=== PATIENT | male | born 1980 | race American Indian/Alaskan Native ===

== ENCOUNTER 2018-09-21 10:27 | Inpatient (IN) | payer BC ==
[2018-09-21 10:48] VITALS: BMI 39.0
[2018-09-21] MEDS ORDERED: Sodium Chloride 0.9% 1,000 ML IV ONE (11:55)
[2018-09-21] MEDS ORDERED: Iohexol 240 (50 ml) PO STA (12:23)
--- NOTE | 2018-09-21 12:24 | C.PDOC ---
History Of Present Illness 37 y/o male with PMHx of cardiac ablation and s/p defibrillator placement, presents to the ED complaining of multiple episodes of diarrhea since last night. Associated with 1 episode of vomiting yesterday, none today. Reports he had another diarrheal episode this morning, in which only blood came out. He denies any fever, chills, dizziness, lightheadedness, abdominal pain, chest pain, or SOB. Patient reports compliance with his Lisinopril, admits he had not been taking his daily baby aspirin but resumed taking it this week. No recent travel. No recent antibiotics. Patient also complains of right-sided back pain, ongoing for some time now. Last seen by his covering machine tender on 09/10. Time Seen by Provider: 09/21/18 10:57 Chief Complaint (Nursing): GI Problem History Per: Patient History/Exam Limitations: no limitations Onset/Duration Of Symptoms: Intermittent Episodes Current Symptoms Are (Timing): Still Present Associated Symptoms: Diarrhea, Back Pain Past Medical History Reviewed: Historical Data, Nursing Documentation, Vital Signs Vital Signs: Last Vital Signs Temp 98.2 F 09/21/18 10:48 Pulse 74 09/21/18 10:48 Resp 18 09/21/18 10:48 BP 145/89 09/21/18 10:48 Pulse Ox 99 09/21/18 10:48 Surgical History: Pacemaker Family History: States: No Known Family Hx - Social History Hx Alcohol Use: No Hx Substance Use: No - Immunization History Hx Tetanus Toxoid Vaccination: No Hx Influenza Vaccination: No Hx Pneumococcal Vaccination: No Review Of Systems Except As Marked, All Systems Reviewed And Found Negative. Constitutional: Negative for: Fever, Chills Eyes: Negative for: Vision Change Cardiovascular: Negative for: Chest Pain, Palpitations Respiratory: Negative for: Shortness of Breath Gastrointestinal: Positive for: Diarrhea (+ watery bloody diarrhea), Other (Bloating). Negative for: Vomiting, Abdominal Pain Neurological: Negative for: Headache, Dizziness Physical Exam - Physical Exam Appears: Non-toxic, Other (Appears uncomfortable) Skin: Warm, Dry Head: Atraumatic, Normacephalic Eye(s): bilateral: Normal Inspection, PERRL, EOMI Oral Mucosa: Moist Neck: Normal ROM Chest: Symmetrical Gastrointestinal/Abdominal: Soft, Tenderness (mild diffuse tenderness), No Distention, No Guarding Rectal: No Hemorrhoids, No Mass, No Tenderness, Other (Bright red blood) Back: Normal Inspection Extremity: Bilateral: Atraumatic, Normal ROM Pulses: Left Dorsalis Pedis: Normal, Right Dorsalis Pedis: Normal Neurological/Psych: Oriented x3, Normal Speech ED Course And Treatment - Laboratory Results Result Diagrams: 09/21/18 12:14 09/21/18 12:14 O2 Sat by Pulse Oximetry: 99 (RA) Pulse Ox Interpretation: Normal Medical Decision Making Medical Decision Making: Differential diagnosis includes but is not limited to: Shigella, ulcerative colitis, Crohns disease, diarrhea secondary to enteritis Initial Plan: --CMP --Lipase --CBC --Stool culture --Occult blood, stool --Ova & parasite --1L IV fluids --Zofran 4 mg IVP --Pepcid 20 mg IVP --CT Abdomen/Pelvis with PO & IV contrast Fecal occult stool performed and is (+) for blood. Disposition - Disposition Disposition Time: 13:23 Condition: STABLE Forms: [employer] (Colombian) - Clinical Impression Clinical Impression: GI bleeding, Abdominal pain - PA / STEERSMAN / Resident Statement MD/DO has reviewed & agrees with the documentation as recorded. - Scribe Statement The provider has reviewed the documentation as recorded by the Aquilesibkaren Cook All medical record entries made by the Aquilesibkaren were at my direction and personally dictated by me. I have reviewed the chart and agree that the record accurately reflects my personal performance of the history, physical exam, medical decision making, and the department course for this patient. I have also personally directed, reviewed, and agree with the discharge instructions and disposition. Physician Patient Turnover Patient Signed Over To: Angi Montilla Handoff Comments: Pending CT scan and re-evaluation
[2018-09-21 12:27] LABS: BASO % 0.5 % (0.0-2.0); EOS # 0.1 K/uL (0.0-0.7); EOS % 0.9 % (0.0-4.0); HEMOGLOBIN 11.2 g/dL (12.0-18.0); LYMPH # 1.9 K/uL (1.0-4.3); LYMPH % 22.1 % (20.0-40.0); MEAN CELL VOLUME 73.4 fL (80.0-94.0); MEAN CORPUSCULAR HGB CONC 31.3 g/dL (33.0-37.0); MEAN PLATELET VOLUME 8.3 fL (7.2-11.7); MONO # 0.6 K/uL (0.0-0.8); MONO % 6.4 % (0.0-10.0); NEUT % 70.1 % (50.0-75.0); RBC 4.88 Mil/uL (4.40-5.90); RED CELL DISTRIBUTION WIDTH 15.3 % (11.5-14.5); WHITE BLOOD COUNT 8.6 K/uL (4.8-10.8)
[2018-09-21 12:36] LABS: ALB/GLOB RATIO 1.1 (1.0-2.1); ALBUMIN 4.5 g/dL (3.5-5.0); ALT/SGPT 24 U/L (21-72); AST/SGOT 27 U/L (17-59); BLOOD UREA NITROGEN 20 mg/dL (9-20); CALCIUM 9.2 mg/dl (8.6-10.4); GFR NON-AFRICAN AMERICAN > 60; LIPASE 32 U/L (23-300)
[2018-09-21] MEDS ORDERED: Iohexol 240 (50 ml) ONE (13:42)
[2018-09-21] MEDS ORDERED: Iodixanol 320 MG/ML 100 ML BOTTLE IV ONE (14:28)
--- NOTE | 2018-09-21 16:29 | CT ---
CT abdomen and pelvis HISTORY: Abdominal pain. COMPARISON: None available. Technique: Multiple contiguous axial images were performed through the abdomen and pelvis with the use of intravenous contrast. Subsequently, sagittal and coronal reformatted images were obtained. This CT exam was performed using one or more of the following dose reduction techniques: Automated exposure control, adjustment of the mA and/or kV according to patient size, and/or use of iterative reconstruction technique. Findings: Lung bases are grossly preserved. Pacer and/or AICD leads in place. Liver and gallbladder are preserved. Spleen is preserved. Splenule. Adrenal glands are preserved. Mild fatty atrophy of the pancreas. Upper abdominal bowel is preserved. Right kidney: No calculi or hydronephrosis. Left Kidney: No calculi or hydronephrosis. Underdistended urinary bladder. Prostate and seminal vesicles are preserved. Thickening of the transverse and descending colon suggestive for a colitis possibly related to an acute infectious and or inflammatory process. Clinical correlation. Fecal retention in the right hemicolon. Appendix not well visualized. Few shotty para-aortic and inguinal lymph nodes. Few shotty mesenteric lymph nodes. Degenerative changes in the spine. Impression: Thickened left hemicolon suggestive for a colitis, possibly acute infectious and or inflammatory in etiology. Clinical correlation. Additional findings as above.
[2018-09-21] MEDS ORDERED: metroNIDAZOLE IV 500 mg/100 ml 500 MG/100 ML BAG IV SCH (16:45)
[2018-09-21] MEDS ORDERED: metroNIDAZOLE IV 500 mg/100 ml 500 MG/100 ML BAG ONE (16:48)
[2018-09-21] MEDS ORDERED: metroNIDAZOLE IV 500 mg/100 ml 500 MG/100 ML BAG IV STA (16:56)
[2018-09-21 17:02] LABS: BASO # 0.1 K/uL (0.0-0.2); BASO % 0.8 % (0.0-2.0); EOS # 0.1 K/uL (0.0-0.7); EOS % 1.3 % (0.0-4.0); LYMPH # 2.8 K/uL (1.0-4.3); LYMPH % 30.7 % (20.0-40.0); MEAN CELL VOLUME 73.3 fL (80.0-94.0); MEAN CORPUSCULAR HEMOGLOBIN 22.6 pg (27.0-31.0); MEAN CORPUSCULAR HGB CONC 30.9 g/dL (33.0-37.0); MEAN PLATELET VOLUME 7.6 fL (7.2-11.7); MONO # 0.5 K/uL (0.0-0.8); NEUT # 5.7 K/uL (1.8-7.0); NEUT % 62.2 % (50.0-75.0); RBC 4.84 Mil/uL (4.40-5.90); WHITE BLOOD COUNT 9.1 K/uL (4.8-10.8)
[2018-09-21 17:10] LABS: INR 1.1; PROTHROMBIN TIME 12.3 SECONDS (9.7-12.2)
[2018-09-21] MEDS: metroNIDAZOLE IV 500 mg/100 ml 500 MG/100 ML BAG IVPB SCH (21:40)
[2018-09-22] MEDS: metroNIDAZOLE IV 500 mg/100 ml 500 MG/100 ML BAG IVPB SCH ×3 (05:14→21:01)
[2018-09-22 08:08] LABS: BASO # 0.1 K/uL (0.0-0.2); BASO % 0.8 % (0.0-2.0); EOS # 0.1 K/uL (0.0-0.7); EOS % 1.8 % (0.0-4.0); LYMPH # 2.6 K/uL (1.0-4.3); MEAN CELL VOLUME 73.7 fL (80.0-94.0); MEAN CORPUSCULAR HEMOGLOBIN 23.5 pg (27.0-31.0); MEAN CORPUSCULAR HGB CONC 31.9 g/dL (33.0-37.0); MEAN PLATELET VOLUME 8.2 fL (7.2-11.7); MONO # 0.5 K/uL (0.0-0.8); MONO % 7.2 % (0.0-10.0); NEUT % 54.2 % (50.0-75.0); NRBC % 0.1 % (0.0-2.0); RBC 4.7 Mil/uL (4.40-5.90); RED CELL DISTRIBUTION WIDTH 15.2 % (11.5-14.5); WHITE BLOOD COUNT 7.3 K/uL (4.8-10.8)
[2018-09-22 08:32] LABS: ALBUMIN 3.9 g/dL (3.5-5.0); ALT/SGPT 29 U/L (21-72); AST/SGOT 27 U/L (17-59); BLOOD UREA NITROGEN 10 mg/dL (9-20); CALCIUM 8.9 mg/dl (8.6-10.4); GFR NON-AFRICAN AMERICAN > 60
[2018-09-22] MEDS ORDERED: Peg-Electrolyte Oral Soln 4L (Golytely) PO ONE (10:00)
[2018-09-22 11:35] LABS: INR 1.1; PROTHROMBIN TIME 12.5 SECONDS (9.7-12.2)
--- NOTE | 2018-09-22 14:02 | PN ---
DATE: 09/22/2018 LOCATION: 361, bed B. SUBJECTIVE: This is a 37-year-old male seen initially for GI consultation as requested by the admitting MD on 09/21/2018, reexamined again today with intermittent period of semi-watery bowel movement with trace of fresh blood with slight crampy abdominal pain less than before. No reported hematemesis, but nausea with mild dyspepsia. No reported chest pain, palpitation or significant chills or fever. Most recent lab results showed subsequent drop of hemoglobin to 11, hematocrit 34.9 with low indices highly suggestive of hypochromic microcytic anemia with recently reported PT of 12.3, PTT of 42 with stool for occult blood positive. A most recently done abdominal and pelvic CAT scan, official report is seen indicative of possible acute colitis or infectious process. The possibility of inflammatory bowel disease by radiology study results was raised. PHYSICAL EXAMINATION: GENERAL: A 37-year-old male. VITAL SIGNS: Afebrile with pulse of 64, respiratory rate of 18 to 20 with blood pressure of 124/74. HEENT: Showed pale, dry oral mucous membrane. Nonicteric sclerae. LUNGS: Clear, breathing sounds are present bilaterally. HEART: Positive S1 and S2. ABDOMEN: Soft with mild generalized tenderness and mild distention including midepigastric and midabdominal line. No mass or organomegaly. No rebound tenderness or guarding. Bowel sounds are present. EXTREMITIES: Without significant edema, clubbing or cyanosis. IMPRESSION: 1. Diarrhea, that could be infectious versus secondary to inflammatory bowel disease with abnormal computerized axial tomography scan of the abdomen and the pelvis. 2. Episodes of vomiting with nausea and dyspepsia. The possibility of upper gastrointestinal blood loss with gastric versus duodenal ulcer to be ruled on or out. 3. Reported history of cardiac ablation with status post defibrillator placement. 4. Anemia, most likely secondary to above. 5. Hyperglycemia of unclear etiology, that could be an early episode of diabetes mellitus. SUGGESTIONS: 1. Agree with your plan. 2. Endoscopic evaluation of the upper and the lower endoscopy after adequate preparation. 3. May add Carafate p.o. with Reglan IV. 4. Further recommendation to follow post upper and lower endoscopy. Luz Marina Castellanos MD [facility] # [id number]
[2018-09-22] MEDS ORDERED: Bisacodyl 5mg EC Tab PO ONE (17:00)
--- NOTE | 2018-09-22 18:08 | CP.PCM.CON ---
History of Present Illness - History of Present Illness History of Present Illness: 37 yo male adm with severe colitis Hx AICD on IV rx await cultures 37 y/o male with PMHx of cardiac ablation and s/p defibrillator placement, presents to the ED complaining of multiple episodes of diarrhea since last night. Associated with 1 episode of vomiting yesterday, Reports he had another diarrheal episode this morning, in which only blood came out. He denies any fever, chills, dizziness, lightheadedness, abdominal pain, chest pain, or SOB. Patient reports compliance with his Lisinopril, admits he had not been taking his daily baby aspirin but resumed taking it this week. No recent travel. No recent antibiotics. Patient also complains of right-sided back pain, Surgical History: Pacemaker Family History: States: No Known Family Hx Review of Systems - Review of Systems All systems: reviewed and no additional remarkable complaints except Past Patient History - Past Medical History & Family History Past Medical History?: Yes - Past Social History Smoking Status: Never Smoked - CARDIAC Hx Hypertension: Yes Hx Pacemaker: Yes Other/Comment: had an ablation and insertion of pacemaker two yars ago by c ardiologist - PULMONARY Hx Respiratory Disorders: No - NEUROLOGICAL Hx Neurological Disorder: No - HEENT Hx HEENT Problems: No - RENAL Hx Chronic Kidney Disease: No - ENDOCRINE/METABOLIC Hx Endocrine Disorders: No - HEMATOLOGICAL/ONCOLOGICAL Hx Blood Disorders: No - INTEGUMENTARY Hx Dermatological Problems: No - MUSCULOSKELETAL/RHEUMATOLOGICAL Hx Musculoskeletal Disorders: No Hx Falls: No - GASTROINTESTINAL Hx Gastrointestinal Disorders: No - GENITOURINARY/GYNECOLOGICAL Hx Genitourinary Disorders: No - PSYCHIATRIC Hx Psychophysiologic Disorder: No Hx Substance Use: No - SURGICAL HISTORY Hx Surgeries: Yes Other/Comment: ablation and pacemaker insertion - ANESTHESIA Hx Anesthesia: Yes Hx Anesthesia Reactions: No Hx Malignant Hyperthermia: No Has any member of the family had a problem w/ anesthesia?: No Meds Home Medications: Home Medication List Medication Instructions Recorded Confirmed Type Ciprofloxacin HCl [Cipro] 500 mg PO BID #14 tab 09/21/18 Rx Metronidazole [Flagyl] 500 mg PO BID #14 tab 09/21/18 Rx Allergies/Adverse Reactions: Allergies Allergy/AdvReac Type Severity Reaction Status Date / Time Penicillins Allergy Verified 09/21/18 10:46 - Medications Medications: Current Medications Carvedilol (Coreg) 25 mg PO BID NELY Last Admin: 09/22/18 17:52 Dose: 25 mg Metronidazole (Flagyl) 500 mg in 100 mls @ 100 mls/hr IVPB Q8H [facility]; Protocol Last Admin: 09/22/18 13:46 Dose: 100 mls/hr Influenza Virus Vaccine (Fluzone Quad [id number]) 60 mcg IM .ONCE ONE Stop: 09/23/18 10:01 Lisinopril (Zestril) 10 mg PO DAILY [facility] Last Admin: 09/22/18 09:33 Dose: 10 mg Metoclopramide HCl (Reglan) 5 mg IVP Q6H [facility] Last Admin: 09/22/18 13:45 Dose: 5 mg Pantoprazole Sodium (Protonix Inj) 40 mg IVP DAILY [facility] Last Admin: 09/22/18 09:33 Dose: 40 mg Pneumococcal Polyvalent Vaccine (Pneumovax 23 Vaccine) 0.5 ml IM .ONCE ONE Stop: 09/23/18 10:01 Physical Exam - Constitutional Appears: Non-toxic, Chronically Ill - Head Exam Head Exam: NORMOCEPHALIC - Eye Exam Eye Exam: PERRL Pupil Exam: NORMAL ACCOMODATION - ENT Exam ENT Exam: Mucous Membranes Dry - Neck Exam Neck exam: Positive for: Normal Inspection - Respiratory Exam Respiratory Exam: Decreased Breath Sounds - Cardiovascular Exam Cardiovascular Exam: REGULAR RHYTHM - GI/Abdominal Exam GI & Abdominal Exam: Diminished Bowel Sounds, Distended, Guarding - Rectal Exam Rectal Exam: Deferred - Exam Exam: NORMAL INSPECTION - Extremities Exam Extremities exam: Positive for: pedal pulses present - Back Exam Back exam: FULL ROM - Neurological Exam Neurological exam: Alert, CN II-XII Intact, Oriented x3 - Psychiatric Exam Psychiatric exam: Normal Mood - Skin Skin Exam: Dry Results - Vital Signs Recent Vital Signs: Last Vital Signs Temp 97.6 F 09/22/18 17:02 Pulse 60 09/22/18 17:02 Resp 20 09/22/18 17:02 BP 125/83 09/22/18 17:52 Pulse Ox 97 09/22/18 17:02 - Labs Result Diagrams: 09/22/18 08:04 09/22/18 08:04 Labs: Laboratory Results - last 24 hr 09/21/18 09/21/18 09/22/18 18:26 19:13 08:04 WBC 7.3 RBC 4.70 Hgb 11.0 L Hct 34.6 L MCV 73.7 L MCH 23.5 L MCHC 31.9 L RDW 15.2 H Plt Count 252 MPV 8.2 Neut % (Auto) 54.2 Lymph % (Auto) 36.0 [place] % (Auto) 7.2 Eos % (Auto) 1.8 Baso % (Auto) 0.8 Neut # (Auto) 4.0 Lymph # (Auto) 2.6 [place] # (Auto) 0.5 Eos # (Auto) 0.1 Baso # (Auto) 0.1 PT INR APTT Sodium Potassium Chloride Carbon Dioxide Anion Gap BUN Creatinine Est GFR ( Amer) Est GFR (Non-Af Amer) Random Glucose Calcium Total Bilirubin AST ALT Alkaline Phosphatase Total Protein Albumin Globulin Albumin/Globulin Ratio Carcinoembryonic Ag Prostate Specific Ag Stool Occult Blood Positive H Blood Type O POSITIVE Antibody Screen Negative 09/22/18 09/22/18 09/22/18 08:04 11:09 11:09 WBC RBC Hgb Hct MCV MCH MCHC RDW Plt Count MPV Neut % (Auto) Lymph % (Auto) [place] % (Auto) Eos % (Auto) Baso % (Auto) Neut # (Auto) Lymph # (Auto) [place] # (Auto) Eos # (Auto) Baso # (Auto) PT 12.5 H INR 1.1 APTT 42 H Sodium 140 Potassium 4.0 Chloride 102 Carbon Dioxide 29 Anion Gap 12 BUN 10 Creatinine 1.1 Est GFR ( Amer) > 60 Est GFR (Non-Af Amer) > 60 Random Glucose 106 Calcium 8.9 Total Bilirubin 0.8 AST 27 ALT 29 Alkaline Phosphatase 74 Total Protein 7.6 Albumin 3.9 Globulin 3.7 Albumin/Globulin Ratio 1.0 Carcinoembryonic Ag 3.4 H Prostate Specific Ag 0.623 Stool Occult Blood Blood Type Antibody Screen Assessment & Plan (1) Colitis Status: Acute (2) Abdominal pain Status: Acute (3) GI bleeding Status: Acute (4) Diarrhea Status: Acute - Assessment and Plan (Free Text) Assessment: acute onset bloody diarrhea- with CT findings suggestivr of colitis r/o enteroinvasive E coli r/o inflammatory bowel disease start empiric IV antibiotics
[2018-09-22] MEDS ORDERED: Aztreonam 1 GM in Sodium Chloride 0.9% 100 ML IVPB SCH (18:15)
[2018-09-22] MEDS: Aztreonam 1 GM in Sodium Chloride 0.9% 100 ML IVPB SCH (21:59)
[2018-09-23] MEDS: Aztreonam 1 GM in Sodium Chloride 0.9% 100 ML IVPB SCH ×3 (05:20→22:06)
[2018-09-23] MEDS: metroNIDAZOLE IV 500 mg/100 ml 500 MG/100 ML BAG IVPB SCH ×3 (06:22→22:04)
[2018-09-23 08:54] LABS: HEPATITIS B SURFACE AG Negative (NEGATIVE)
[2018-09-23 09:00] LABS: HEPATITIS A IGM NEGATIVE (NEGATIVE); HEPATITIS B CORE AB NEGATIVE (NEGATIVE)
[2018-09-23 09:11] LABS: HEPATITIS C ANTIBODY NEGATIVE (NEGATIVE)
--- NOTE | 2018-09-23 09:48 | RAD ---
Date of service: 09/23/2018 HISTORY: preop COMPARISON: No prior. FINDINGS: LUNGS: No active pulmonary disease. PLEURA: No significant pleural effusion identified, no pneumothorax apparent. CARDIOVASCULAR: No aortic atherosclerotic calcification present. Is mildly enlarged. In situ pacemaker/defibrillator. OSSEOUS STRUCTURES: No significant abnormalities. VISUALIZED UPPER ABDOMEN: Normal. OTHER FINDINGS: None. IMPRESSION: No active disease.
[2018-09-23] MEDS ORDERED: Influenza Vaccine 60 MCG/0.5 ML SYR (3 yr & up) IM ONE (10:00)
[2018-09-23] MEDS ORDERED: Pneumococcal 23-Valent Vaccine IM ONE (10:00)
--- NOTE | 2018-09-23 10:06 | CP.PCM.PN ---
Subjective - Date & Time of Evaluation Date of Evaluation: 09/23/18 Time of Evaluation: 07:00 - Subjective Subjective: Resident Progress Note for Dr. 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 Patient describes his diarrhea was bright red in color but it did not cover the whole toilet bowl. He had about 5 episodes at home and one more episode in the ED. He also report had one episode of vomiting. Patient was recently recently on baby aspirin per his chemistry teacher. He denies recent changes in diet or sick contacts. He does not have family history of colon cancer. Patient was told about his WPW diagnosis when he was 23 years old after having episodes of shortness of breath and palpitations. Patient underwent cardiac ablation soon after. Patient experienced an episode of syncope at 35 years old after using the toilet. Per patient, he then underwent "several heart testings" and was found he only had 30% EF and was recommended to have a pacemaker. Currently patient is resting in bed comfortably. He denies having fever, chills, shortness of breath, chest pain, nausea, vomiting, or urinary symptoms. 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 Lanza PMHx: WPW s/p cardiac ablation 2003 PSHx: pacemaker 2016 Allergy: penicillins Social Hx: Denies tobacco, alcohol, or drug use. 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 [employer] Family Hx: father CAD s/p 1 stent, mother ?A fib currently on blood thinner Medications: Aspirin 81mg, Carvedilol 25mg BID, Lisinopril 10mg Objective - Vital Signs/Intake and Output Vital Signs (last 24 hours): Temp Pulse Resp BP Pulse Ox 98.5 F 58 L 20 134/75 100 09/23/18 00:00 09/23/18 00:00 09/23/18 00:00 09/23/18 09:17 09/23/18 00:00 Intake and Output: 09/23/18 09/23/18 06:59 18:59 Intake Total 220 Balance 220 - Medications Medications: Current Medications Carvedilol (Coreg) 25 mg PO BID NELY Last Admin: 09/23/18 09:17 Dose: 25 mg Metronidazole (Flagyl) 500 mg in 100 mls @ 100 mls/hr IVPB Q8H [facility]; Protocol Last Admin: 09/23/18 06:22 Dose: 100 mls/hr Aztreonam 1 gm/ Sodium (Chloride) 100 mls @ 100 mls/hr IVPB Q8H [facility]; Protocol Last Admin: 09/23/18 05:20 Dose: 100 mls/hr Lisinopril (Zestril) 10 mg PO DAILY [facility] Last Admin: 09/23/18 09:18 Dose: 10 mg Metoclopramide HCl (Reglan) 5 mg IVP Q6H [facility] Last Admin: 09/23/18 09:10 Dose: 5 mg Pantoprazole Sodium (Protonix Inj) 40 mg IVP DAILY [facility] Last Admin: 09/23/18 09:16 Dose: 40 mg - Labs Labs: 09/22/18 08:04 09/22/18 08:04 PT 12.5 SECONDS (9.7-12.2) H 09/22/18 11:09 INR 1.1 09/22/18 11:09 APTT 42 SECONDS (21-34) H 09/22/18 11:09 - Additional Findings Additional findings: - Constitutional Appears: Well, Non-toxic - Head Exam Head Exam: NORMOCEPHALIC - Eye Exam Eye Exam: PERRL Pupil Exam: NORMAL ACCOMODATION - ENT Exam ENT Exam: Mucous Membranes Dry - Neck Exam Neck exam: Positive for: Normal Inspection - Respiratory Exam Respiratory Exam: Decreased Breath Sounds - Cardiovascular Exam Cardiovascular Exam: REGULAR RHYTHM - GI/Abdominal Exam GI & Abdominal Exam: Diminished Bowel Sounds, Distended, Guarding - Rectal Exam Rectal Exam: Deferred - Exam Exam: NORMAL INSPECTION - Extremities Exam Extremities exam: Positive for: pedal pulses present - Back Exam Back exam: FULL ROM - Neurological Exam Neurological exam: Alert, CN II-XII Intact, Oriented x3 - Psychiatric Exam Psychiatric exam: Normal Mood - Skin Skin Exam: Dry Assessment and Plan - Assessment and Plan (Free Text) Assessment: Colitis -CT Abd shows thickened left hemicolon suggestive for a colitis, possibly acute infectious and or inflammatory in etiology. -No fever, no leukocytosis -No further episodes of bloody diarrhea since admission -Follow up fecal calprotectin, cultures, serology -Infectious disease consulted, Dr. Benoit help appreciated -Azactam 1gm Q8hr and Flagyl 500mg Q8hr -GI consulted, Dr. Raymond help appreciated -Follow up endoscopy results Hypertension -Lisinopril 10mg -Carvedilol 25mg BID Prophylactic measures -Protonix 40mg IV -SCD -Reglan 5mg Q6h Case discussed with attending Dr. Smyth
[2018-09-23] MEDS ORDERED: PROCAINAMIDE 1000 MG/2 ML IV STA (10:41)
[2018-09-23] MEDS ORDERED: Lidocaine 4% (Laryng-O-Jet) Kit MM ONE (11:01)
[2018-09-23] MEDS ORDERED: Lactated Ringer's 500 ML IV ONE ×2 (11:04)
[2018-09-23] MEDS ORDERED: Midazolam 2 MG/2 ML VIAL ONE ×2 (11:05→11:15)
[2018-09-23] MEDS ORDERED: Etomidate 20 mg/10ml Inj IV ONE (11:06)
[2018-09-23] MEDS ORDERED: metroNIDAZOLE IV 500 mg/100 ml 500 MG/100 ML BAG IVPB SCH (14:00)
[2018-09-23 15:58] VITALS: RESP 20
--- NOTE | 2018-09-23 21:10 | CON ---
DATE: 09/21/2018 CHIEF COMPLAINT: I was called for a GI consultation by the admitting medical team. The patient is seen and fully examined on 09/21/2018 as requested by the admitting medical staff. The entire chart is reviewed including but not limited to the most recent lab and radiology study results, current and the previous medication list, current and the previous medical events, allergy to medication list as well as all the available current and the previous medical records. Case discussed with the staff at length. HISTORY OF PRESENT ILLNESS: This is a 37-year-old male, was admitted to the hospital through the emergency room with a main complaint of recurrent episodes of diarrhea within the last several hours prior to his admission with one episode of nausea and vomiting non-bloody, then subsequent episodes of rectal bleeding, but no actual chest pain, palpitation or any significant shortness of breath, chills or fever. PAST MEDICAL HISTORY: Including mainly but not limited to cardiac arrhythmia status post ablation and pacemaker insertion, peptic ulcer disease, chronic lower back pain syndrome. SOCIAL HISTORY: Denied any history of alcohol intake or cigarette smoking recently. FAMILY HISTORY: Unknown. MEDICATIONS: Current medication plus admission medication lists were reviewed. ALLERGIES TO MEDICATIONS: Unclear. LABORATORY DATA: Initial blood workup post admission showed low hemoglobin of 11.2 but normal hematocrit, white blood cells and platelet count. Blood glucose level was elevated to 126. After being admitted to the hospital, initial CAT scan of the abdomen and pelvis was indicative of possible colitis with possible acute infectious or/and inflammatory process. Entire report of the CAT scan was reviewed. PHYSICAL EXAMINATION: GENERAL: Normal 37-year-old male appears to be awake, alert, oriented, afebrile with a pulse of 76, respiratory rate 18-20, blood pressure 140/86. HEENT: Showed pale dry oral mucoid membrane mildly, nonicteric sclerae. LYMPH NODES: No lymphadenitis or lymphadenopathy. LUNGS: Few scattered crepitation. Decreased air entry at bases. HEART: Positive S1 and S2. ABDOMEN: Soft with generalized tenderness, mild distention. Bowel sounds are hyperactive. No mass or organomegaly. No rebound tenderness or guarding. RECTAL EXAMINATION: Guaiac-positive stool with mucoid semi-watery fecal material with trace of old and fresh blood. EXTREMITIES: Without significant clubbing, cyanosis, or edema. NEUROLOGIC: No reported new neurological deficits, sensory, or motor. No focal deficits reported. IMPRESSION: 1. Gastrointestinal bleeding, upper versus lower. 2. Re-exacerbation of peptic ulcer disease, to rule out gastric versus duodenal ulcer. 3. Abnormal CAT scan of the abdomen and pelvis with evidence of acute colitis associated with rectal bleeding. The possibility of infectious diarrhea versus inflammatory bowel disease was raised. 4. Diarrhea secondary to above. 5. Cardiac arrhythmias with status post pacemaker insertion. SUGGESTIONS: 1. Agree with your plan. 2. Cancer markers. 3. Proton pump inhibitors. 4. Currently p.o. 5. Endoscopic evaluation of the GI tract after adequate preparation. 6. Complete stool workup. 7 Further recommendation to follow post upper and lower endoscopy. Thank you for letting me participate in your patient's case management. Luz Marina Castellanos MD [email or web address]
[2018-09-24 00:09] VITALS: PULSE 60; TEMP 98.2; O2SAT 99
[2018-09-24] MEDS: Aztreonam 1 GM in Sodium Chloride 0.9% 100 ML IVPB SCH ×2 (04:38→13:31)
[2018-09-24] MEDS: metroNIDAZOLE IV 500 mg/100 ml 500 MG/100 ML BAG IVPB SCH (06:42)
--- NOTE | 2018-09-24 07:49 | CP.PCM.PN ---
Subjective - Date & Time of Evaluation Date of Evaluation: 09/24/18 Time of Evaluation: 08:00 - Subjective Subjective: Medicine Progress Note for Dr. Smyth: Patient was seen and examined at bedside in the AM. Patient states he is feeling well and denies abdominal pain. Patient denies chest pain, shortness of breath, nausea, vomiting, diarrhea, constipation, fever, chills, dysuria or hematuria. Objective - Vital Signs/Intake and Output Vital Signs (last 24 hours): Temp Pulse Resp BP Pulse Ox 98.2 F 60 20 135/76 99 09/24/18 00:06 09/24/18 00:06 09/24/18 00:06 09/24/18 00:06 09/24/18 00:06 Intake and Output: 09/24/18 09/24/18 06:59 18:59 Intake Total 300 Balance 300 - Medications Medications: Current Medications Carvedilol (Coreg) 25 mg PO BID [facility] Last Admin: 09/23/18 17:55 Dose: 25 mg Hydrocortisone Sodium Succinate (Solu-Cortef) 20 mg IV Q8 [facility] Last Admin: 09/23/18 22:03 Dose: 20 mg Metronidazole (Flagyl) 500 mg in 100 mls @ 100 mls/hr IVPB Q8H [facility]; Protocol Last Admin: 09/24/18 06:42 Dose: 100 mls/hr Aztreonam 1 gm/ Sodium (Chloride) 100 mls @ 100 mls/hr IVPB Q8H [facility]; Protocol Last Admin: 09/24/18 04:38 Dose: 100 mls/hr Lisinopril (Zestril) 10 mg PO DAILY [facility] Last Admin: 09/23/18 09:18 Dose: 10 mg Metoclopramide HCl (Reglan) 5 mg IVP Q6H [facility] Last Admin: 09/24/18 02:50 Dose: Not Given Pantoprazole Sodium (Protonix Inj) 40 mg IVP DAILY [facility] Last Admin: 09/23/18 09:16 Dose: 40 mg Sucralfate (Carafate Tab) 1 gm PO ACBHS [facility] Last Admin: 09/23/18 22:01 Dose: 1 gm - Labs Labs: 09/22/18 08:04 09/22/18 08:04 PT 12.5 SECONDS (9.7-12.2) H 09/22/18 11:09 INR 1.1 09/22/18 11:09 APTT 42 SECONDS (21-34) H 09/22/18 11:09 - Constitutional Appears: No Acute Distress - Head Exam Head Exam: ATRAUMATIC, NORMAL INSPECTION - Eye Exam Eye Exam: EOMI, Normal appearance - ENT Exam ENT Exam: Mucous Membranes Moist - Respiratory Exam Respiratory Exam: Clear to Ausculation Bilateral, NORMAL BREATHING PATTERN - Cardiovascular Exam Cardiovascular Exam: REGULAR RHYTHM, +S1, +S2 Additional comments: AICD - Extremities Exam Extremities Exam: Normal Inspection - Neurological Exam Neurological Exam: Alert, Awake, Oriented x3 - Psychiatric Exam Psychiatric exam: Normal Affect - Skin Skin Exam: Normal Color Assessment and Plan - Assessment and Plan (Free Text) Assessment: Colitis -CT Abd shows thickened left hemicolon suggestive for a colitis, possibly acute infectious and or inflammatory in etiology. -No fever, no leukocytosis -No further episodes of bloody diarrhea since admission -Follow up fecal calprotectin, cultures, serology -Stool culture negative -Infectious disease consulted, Dr. Benoit help appreciated -Azactam 1gm Q8hr and Flagyl 500mg Q8hr -GI consulted, Dr. Hightower help appreciated Hypertension -Lisinopril 10mg -Carvedilol 25mg BID Prophylactic measures -Protonix 40mg IV bid -SCD -Reglan 5mg Q6h Case discussed with attending Dr. Smyth Disposition: Patient discharged home 09/24/18. Please continue home medications. Please start new medications: Ciprofloxacin 500mg one tablet twice a day for 7 days Metronidazole 500mg one tablet twice a day for 7 days Protonix 40mg one tablet twice a day. Please follow up with blanket inspector, Dr. Hightower within one week. Please follow up with your PMD in 2 weeks.
[2018-09-24 07:50] LABS: BASO % 0.4 % (0.0-2.0); EOS # 0.1 K/uL (0.0-0.7); EOS % 1.1 % (0.0-4.0); HEMOGLOBIN 10.9 g/dL (12.0-18.0); LYMPH # 2.5 K/uL (1.0-4.3); LYMPH % 29.8 % (20.0-40.0); MEAN CELL VOLUME 73.3 fL (80.0-94.0); MEAN CORPUSCULAR HEMOGLOBIN 23.1 pg (27.0-31.0); MEAN CORPUSCULAR HGB CONC 31.5 g/dL (33.0-37.0); MEAN PLATELET VOLUME 7.6 fL (7.2-11.7); MONO # 0.6 K/uL (0.0-0.8); NEUT # 5.1 K/uL (1.8-7.0); NEUT % 61.7 % (50.0-75.0); RBC 4.73 Mil/uL (4.40-5.90); WHITE BLOOD COUNT 8.3 K/uL (4.8-10.8)
[2018-09-24 08:25] LABS: ALB/GLOB RATIO 1.1 (1.0-2.1); ALBUMIN 3.9 g/dL (3.5-5.0); ALT/SGPT 23 U/L (21-72); AST/SGOT 20 U/L (17-59); BLOOD UREA NITROGEN 8 mg/dL (9-20); CALCIUM 8.8 mg/dl (8.6-10.4); GFR NON-AFRICAN AMERICAN > 60
--- NOTE | 2018-09-24 08:42 | HP ---
HISTORY OF PRESENT ILLNESS: A 77-year-old male history of ____, status post ablation, ____. Patient chief complaint of GI bleeding. The patient is on bedrest, supportive care, advised admission. Patient has hypertension taking lisinopril 10mg. PHYSICAL EXAMINATION: GENERAL: The patient is awake, alert, and oriented. VITAL SIGNS: Temperature 98, pulse 90. HEENT: Within normal limits. NECK: Supple. CHEST: Symmetrical. HEART: Regular. ABDOMEN: Soft. EXTREMITIES: No edema. ____ in place. IMPRESSION: Gastrointestinal bleeding. Patient on bedrest, GI consult. Eddie Smyth MD
[2018-09-24 10:02] VITALS: BP 157/79
--- NOTE | 2018-09-24 12:06 | PN ---
DATE: 09/24/2018 LOCATION: 361, bed B. SUBJECTIVE: This is a 37-year-old male who had both upper and lower endoscopy, seen and examined in rounds without reported significant clinical changes or evidence of active bleeding. The entire chart is reviewed, including but not limited to the most recent lab and radiology study results, current and the previous medication list, current and the previous medical events and today's labs showed hemoglobin of 10.9, hematocrit 34.6 with low indices highly suggestive of hypochromic microcytic anemia. CEA level reported to be 3 to 3.4. PHYSICAL EXAMINATION: GENERAL: This is a 37-year-old male, appears to be awake, alert and oriented. VITAL SIGNS: Afebrile with pulse of 64, respiratory rate of 20 to 22, blood pressure of 150/76. HEENT: Pale, dry oral mucous membrane. Nonicteric sclerae. LUNGS: Few scattered crepitation. Decreased air entry at bases. HEART: Positive S1 and S2. ABDOMEN: Soft with mild generalized tenderness. No mass or organomegaly. No rebound tenderness or guarding, but lower abdominal tenderness. RECTAL: Guaiac positive stool with internal hemorrhoids. EXTREMITIES: Without significant edema, clubbing or cyanosis. NEUROLOGIC: No reported new neurological deficits, sensory or motor. IMPRESSION: 1. Gastrointestinal bleeding with colitis, awaiting the pathology report. 2. Abnormal CAT scan of the abdomen and pelvis. 3. Peptic ulcer disease. 4. Hyperchromic macrocytic anemia. SUGGESTIONS: 1. Continue current management. 2. Pending the outcome of the pathology report of the colon mucosa, the patient may need low dose of steroids intravenous with possible ischemic colitis. Case discussed at length with . Luz Marina Castellanos MD
--- NOTE | 2018-09-24 12:07 | CP.PCM.PN ---
Subjective - Date & Time of Evaluation Date of Evaluation: 09/24/18 Time of Evaluation: 08:00 - Subjective Subjective: doing well Objective - Vital Signs/Intake and Output Vital Signs (last 24 hours): Temp Pulse Resp BP Pulse Ox 98.2 F 60 20 157/79 H 99 09/24/18 00:06 09/24/18 00:06 09/24/18 00:06 09/24/18 10:00 09/24/18 00:06 Intake and Output: 09/24/18 09/24/18 06:59 18:59 Intake Total 300 370 Balance 300 370 - Medications Medications: Current Medications Carvedilol (Coreg) 25 mg PO BID [facility] Last Admin: 09/24/18 10:00 Dose: 25 mg Hydrocortisone Sodium Succinate (Solu-Cortef) 20 mg IV Q8 [facility] Last Admin: 09/23/18 22:03 Dose: 20 mg Metronidazole (Flagyl) 500 mg in 100 mls @ 100 mls/hr IVPB Q8H [facility]; Protocol Last Admin: 09/24/18 06:42 Dose: 100 mls/hr Aztreonam 1 gm/ Sodium (Chloride) 100 mls @ 100 mls/hr IVPB Q8H [facility]; Protocol Last Admin: 09/24/18 04:38 Dose: 100 mls/hr Lisinopril (Zestril) 10 mg PO DAILY [facility] Last Admin: 09/24/18 10:00 Dose: 10 mg Metoclopramide HCl (Reglan) 5 mg IVP Q6H [facility] Last Admin: 09/24/18 08:43 Dose: 5 mg Pantoprazole Sodium (Protonix Inj) 40 mg IVP BID [facility] Last Admin: 09/24/18 10:00 Dose: 40 mg Sucralfate (Carafate Tab) 1 gm PO ACBHS [facility] Last Admin: 09/24/18 08:30 Dose: 1 gm - Labs Labs: 09/24/18 07:39 09/24/18 07:39 PT 12.5 SECONDS (9.7-12.2) H 09/22/18 11:09 INR 1.1 09/22/18 11:09 APTT 42 SECONDS (21-34) H 09/22/18 11:09 - Constitutional Appears: No Acute Distress - Head Exam Head Exam: ATRAUMATIC - Eye Exam Eye Exam: absent: Scleral icterus - ENT Exam ENT Exam: Mucous Membranes Dry - Neck Exam Neck Exam: absent: Lymphadenopathy - Respiratory Exam Respiratory Exam: Decreased Breath Sounds - Cardiovascular Exam Cardiovascular Exam: REGULAR RHYTHM - GI/Abdominal Exam GI & Abdominal Exam: Distended - Rectal Exam Rectal Exam: Deferred - Exam Exam: NORMAL INSPECTION Assessment and Plan (1) Colitis Status: Acute (2) Abdominal pain Status: Acute (3) GI bleeding Status: Acute (4) Diarrhea Status: Acute - Assessment and Plan (Free Text) Assessment: all cultures neg ok to d/c on PO rx follow up with Dr Hightower
--- NOTE | 2018-09-24 19:36 | CARD ---
APPROVED REPORT Date of service: 09/23/2018 EKG Measurement Heart [id number] <Conclusion> Sinus bradycardia with 1st degree AV block Nonspecific T wave abnormality Abnormal ECG
--- NOTE | 2018-09-27 07:34 | DS ---
The patient was admitted to the hospital with chief complaint of generalized weakness, fatigue, and tiredness. The patient was placed on bedrest, supportive care. The patient showed gradual improvement, discharged, will be followed up as outpatient. Eddie Smyth MD
== END 2018-09-24 13:34 | disposition home or self-care (01) | DRG 387 ==
LOC: C.ER 10:27 → C.9E 17:26 → C.3T 17:41
PROVIDERS: ADMIT Internal Medicine Pulmonary Disease; ATTEND Internal Medicine Pulmonary Disease
PROC: 0DB68ZX Excision of Stomach, Via Natural or Artificial Opening Endoscopic, Diagnostic (ICD-10-PCS; 2018-09-23)
PROC: 0DB78ZX Excision of Stomach, Pylorus, Via Natural or Artificial Opening Endoscopic, Diagnostic (ICD-10-PCS; 2018-09-23)
PROC: 0DBM8ZX Excision of Descending Colon, Via Natural or Artificial Opening Endoscopic, Diagnostic (ICD-10-PCS; principal; 2018-09-23 11:02)
PROC: 0DBL8ZX Excision of Transverse Colon, Via Natural or Artificial Opening Endoscopic, Diagnostic (ICD-10-PCS; 2018-09-23 11:02)
DX: K51.511 Left sided colitis with rectal bleeding (principal); K64.0 First degree hemorrhoids; K29.50 Unspecified chronic gastritis without bleeding; K27.9 Peptic ulcer, site unspecified, unspecified as acute or chronic, without hemorrhage or perforation; Z82.49 Family history of ischemic heart disease and other diseases of the circulatory system; Z95.810 Presence of automatic (implantable) cardiac defibrillator; D53.9 Nutritional anemia, unspecified; I10 Essential (primary) hypertension